=== PATIENT | female | born 2000 | race African-American/Black ===

== ENCOUNTER 2020-05-12 11:43 | Outpatient (CLI) | payer OTHER, SELFPAY ==
[2020-05-12 13:25] LABS: HIV 1/2 Ab P24 Ag Result Negative (Negative)
[2020-05-12 14:01] LABS: Hepatitis B Surface Anti Res Negative; Hepatitis C Virus Antibody Negative (Negative)
== END 2020-05-12 11:44 | disposition home or self-care (01) ==
PROVIDERS: PCP Family Medicine; Visit Provider Family Medicine
DX: Z00.00 Encounter for general adult medical examination without abnormal findings (principal)
CPT/HCPCS: 36415; 86703; 86706; 86803; 87491; 87591; G0432

== ENCOUNTER 2025-05-23 10:38 | Emergency (ER) | payer OTHER, SELFPAY ==
--- NOTE | 2025-05-23 10:40 | ED_ITS ---
HPI - URI/Sore Throat General Chief Complaint: Upper Respiratory Infection Stated Complaint: throat Time Seen by Provider: 05/23/25 10:40 Source: patient Mode of arrival: ambulatory Limitations: no limitations History of Present Illness HPI Narrative: Aurea is a 24 year old female patient presenting to the clinic today with c/o sore throat x 2 days. She reports having chills and hot flashes. No URI symptoms. No known sick contacts. No drooling but having pain with swallowing. Has taken Tylenol and ibuprofen as needed for pain. Rates pain currently an 05/24. Related Data Home Medications ?Medication ?Instructions ?Recorded ?Confirmed ?Last Taken ?Type bupropion HCl 150 mg 24 hr tablet, mg PO 05/23/25 Unknown History extended release Allergies Allergy/AdvReac Type Severity Reaction Status Date / Time No Known Allergies Allergy Unverified 09/07/15 21:31 Review of Systems Review of Systems: Pertinent positives per HPI. Patient denies any fever, chills, rash, headache, visual changes, dizziness, cough, shortness of breath, chest pain, palpitations, nausea, vomiting, diarrhea, constipation, abdominal pain, or any urinary issues. PMFSH Comments At the time of my signature, I reviewed and agree with the nursing past medical, surgical, social, and family history. There is no relevant family history pertinent to the patient complaint. Exam Narrative: General: Well-developed, well nourished, in no apparent distress Head: Normocephalic, atraumatic Eyes: Pupils equally round and reactive to light bilaterally, EOM intact, sclera and conjunctive clear, no discharge, lids normal Ears: TMs intact and clear, ear canals clear, no drainage, grossly hearing normal. Nose: Nares patent, no discharge, no inflammation, no sinus tenderness. Mouth: Oral pharynx red with enlargement of the left tonsil with exudate, uvula deviated to left, muffled voice, no drooling, good dentition, MMM. Neck: Supple, trachea midline, enlargement of left anterior cervical nodes, no thyroid masses or goiter palpable. Cardio: Regular rate and rhythm, s1 and s2 normal, no murmur appreciated. Resp: Clear to auscultation bilaterally, no rhonchi, rales, wheezing or rubs Course Course Emergency Course: Portions of this record may have been created with voice recognition software. Level of Care: Express Care Visit Vital Signs Vital signs: Vital signs reviewed MDM - URI/Sore Throat MDM Narrative Medical decision making narrative: At the time of visit patient is resting comfortably on the exam table. Patient appears to be nontoxic. C/o sore throat x 2 days. She reports having chills and hot flashes. No URI symptoms. No known sick contacts. No drooling but having pain with swallowing. Has taken Tylenol and ibuprofen as needed for pain. Rates pain currently an 8/. Strep test was ordered. On exam patient has muffled voice, left tonsillar enlargement with exudate, left side enlargement of anterior cervical lymph nodes, uvula deviation to the left. Likely has peritonsillar abscess. Labs: Strep test was obtained and negative in the clinic today. Plan: I suspect patient likely has a left peritonsillar abscess as she has swelling of the left tonsil with exudate, left sided cervical lymphadenopathy, as well as deviation of the uvula to the left side. Recommend transfer to the emergency room for further evaluation. Patient agrees to transfer and would like to go to [facility] emergency room. Contacted Dr. Tex Jessica emergency room-no ENT provider [id number] transfer to a facility that has ENT. Patient would like to try going to [facility]-spoke with a provider [facility] and they do not have ENT on-call this weekend. Recommended to the patient to go to [place] [facility] or [facility] as they will have ENT on-call. Patient declined going to [place] and would like to try to go to [facility] and be evaluated determine if they need to be transferred for drainage of the peritonsillar abscess. Differential Diagnosis Differential diagnosis: Likely upper respiratory infection, otitis media, si nusitis, viral infection, bronchitis, influenza, pharyngitis and other (COVID) Discharge Plan Discharge Clinical Impression: Peritonsillar abscess determined by examination Patient Disposition: Acute Care Hospital Condition: Stable Patient Language: Romansh Prescriptions: No Action bupropion HCl 150 mg tablet extended release 24 hr PO Follow-up/Referrals: UNKNOWN,DOCTOR [Non-Staff] - Time of Disposition: 11:05 Quality NIHSS Nursing Documentation ED NIHSS nursing documentation: reviewed/agree
--- OUTSIDE RECORDS SUMMARY | 2025-05-23 10:41 | XMS_ITS | Clinical Summary ---
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 Gender Identity Not on file Sexual Orientation Not on file Plan of Treatment Health Maintenance Due Date Last Done Comments Cervical Cancer Screening Pap Smear (Age 21 to 29) Every 3 Years 1999 Cervical Cancer Screening 1999 Annual Physical 2002 Hepatitis C 2017 DTaP, Tdap and Td Vaccines (7 - Td or Tdap) 06/05/2021 06/05/2011, 10/20/2004, 10/20/2004, Additional history exists COVID-19 Vaccine ( season) 2024 05/26/2021, 05/05/2021 Hepatitis B Vaccines Completed 03/06/2000, 1999, 1999 Pneumococcal Vaccine: Pediatrics (0 to 5 Years) and At-Risk Patients (6 to 49 Years) Aged Out 12/05/2000, 09/12/2000, 07/02/2000 No longer eligible based on patient's age to complete this topic HPV Vaccines Completed 06/05/2011, 01/14, 12/05/2010 Meningococcal Vaccine Aged Out 05/07/2017 , 10/11/2015, 06/05/2011 No longer eligible based on patient's age to complete this topic Meningococcal B Vaccine Aged Out No l onger eligible based on patient's age to complete this topic RSV Immunizations Under 20 Months Aged Out No longer eligible based on patient's age to complete this topic Insurance Community Cash OPEN ACCESS [facility] Care Teams Mortgage Field Inspector Relationship Specialty Start Date End Date Susan Handley NP [address] [place] [id number] PCP - General NURSE PRACTITIONER 10/23/24
[2025-05-23 10:52] VITALS: BP 123/80; PULSE 95; RESP 16; TEMP 36.8; O2SAT 100
[2025-05-23 11:16] LABS: EDSTREPNEGPOS1 Negative (Negative)
== END 2025-05-23 11:15 | disposition short-term general hospital (02) ==
LOC: EXPBETH 10:41
PROVIDERS: Emergency Provider Nurse Practitioner Family
DX: J36 Peritonsillar abscess (principal); F32.A Depression, unspecified
CPT/HCPCS: 87880; 99202; G0463

== ENCOUNTER 2025-10-05 17:51 | Emergency (ER) | payer OTHER, MEDICAID, SELFPAY ==
--- OUTSIDE RECORDS SUMMARY | 2025-10-05 17:54 | XMS_ITS | Clinical Summary ---
Author Organization [facility] Address [address] [place] [address] Care Team Providers Care Continuous Loft Operator Name Role Phone None, Physician Primary Care Provider Unavailabl e Source Comments [facility],non-owned Affiliates and Associated Physician Practices is amultiple site organization consisting of ambulatory clinics and hospital sitesin [place], [place], [place] and [place]. This disclosure is being madepursuant to the Care Everywhere program and may not contain all information available regarding this patient. Last updated 18.[facility] Allergies No known active allergies Social History Tobacco Use Types Packs/Day Years Used Date Smoking Tobacco: Never Assessed Comments Unknown Sex and Gender Information Value Date Recorded Sex Assigned at Not on file Legal Sex Female 12:43 PM CDT Gender Identity Not on file Sexual Orientation Not on file Last Filed Vital Signs Vital Sign Reading Time Taken Comments Blood Pressure 116/68 05/23/2025 2:00 PM CDT Pulse 83 05/23/2025 2:00 PM CDT Temperature 36.3 C (97.4 F) 05/23/2025 12:44 PM CDT Respiratory Rate 16 05/23/2025 12:44 PM CDT Oxygen Saturation 99% 05/23/2025 2:00 PM CDT Inhaled Oxygen Concentration - - Weight 61.2 kg (135 lb) 05/23/2025 12:44 PM CDT Height 154.9 cm (5' 1) 05/23/2025 12:44 PM CDT Body Mass Index 25.51 05/23/2025 12:44 PM CDT Plan of Treatment Health Maintenance Due Date Last Done Comments HIV SCREENING 2014 HPV VACCINE (1 - 3-dose series) 2014 HEPATITIS C SCREENING 08/28/2017 DTAP/TDAP/TD VACCINES (1 - Tdap) 2018 HEPATITIS B VACCINE (1 of 3 - 19+ 3-dose series) 2018 PAP SMEAR 2020 DEPRESSION SCREENING 10/15/2024 COVID-19 VACCINE (1 - 2024-2 6 season) 2025 INFLUENZA VACCINE (#1) 2025 ZOSTER VACCINE (1 of 2) 2049 HIB VACCINE Aged Out No longer eligi ble based on patient's age to complete this topic MENINGOCOCCAL (Group B) VACC INE SHARED DECISION-MAKING Aged Out No longer eligibl e based on patient's age to complete this topic MENINGOCOCCAL GROUPS A/C/Y/W VACCINE Aged Out No longer eligible b ased on patient's age to complete this topic PNEUMOCOCCAL VACCINE Aged Out No long er eligible based on patient's age to complete this topic Insurance MEDICAID - [place] Care Teams Continuous Loft Operator Relationship Specialty Start Date End Date None, Physician PCP - General 05/23/25
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
--- OUTSIDE RECORDS SUMMARY | 2025-10-05 17:54 | XMS_ITS | Clinical Summary ---
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 Gender Identity Not on file Sexual Orientation [...] Additional history exists COVID-19 Vaccine ( season) 2025 05/26/2021, 05/05/2021 Influenza Adult (#1) 2025 08/17/2020, 09/11/2018, 10/10/2016, Additional history exists Hepatitis B Vaccines Completed 03/06/2000, 1999, 1999 Pneumococcal Vaccine: Pediatrics (0 to 5 Years) and At-Risk Patients (6 to 49 Years) Aged Out 12/05/2000, 09/12/2000, 07/02/2000 No longer eligible based on patient's age to complete this topic HPV Vaccines Completed 06/05/2011, 01/14, 12/05/2010 Hepatitis A Vaccines Completed 10/06/2014, 03/20/20 14 Meningococcal Vaccine Aged Out 05/07/2017 , 10/11/2015, 06/05/2011 No longer eligible based on patient's age to complete this topic Meningococcal B Vaccine Aged Out No l onger eligible based on patient's age to complete this topic RSV Immunizations Under 20 Months Aged Out No longer eligible based on patient's age to complete this topic Insurance [facility] Care Teams Beet Topper Relationship Specialty Start Date End Date Susan Handley NP [address] [phone] PCP - General NURSE PRACTITIONER 10/23/24
[2025-10-05 18:00] VITALS: BP 136/79; PULSE 85; RESP 18; TEMP 36.8; O2SAT 100
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
== END 2025-10-05 18:21 | disposition home or self-care (01) ==
PROVIDERS: Emergency Provider Nurse Practitioner Family
DX: S09.90XA Unspecified injury of head, initial encounter (principal); S01.81XA Laceration without foreign body of other part of head, initial encounter; W19.XXXA Unspecified fall, initial encounter
CPT/HCPCS: 99212; G0463